=== PATIENT | female | born 1985 | race Caucasian/White ===

== ENCOUNTER 2023-11-14 16:08 | Emergency (ER) | payer MEDICAID, SELFPAY ==
--- NOTE | ~2023-11-14 | XR_ITS ---
EXAMINATION: XR FOOT, RIGHT CLINICAL INFORMATION: Pain to fifth metatarsal COMPARISON: None TECHNIQUE: 3 views of the foot FINDINGS: No fracture or dislocation. Joint spaces are maintained. Small Achilles tendon enthesophyte. No joint effusion. Soft tissues are unremarkable. XR/XR foot RT min 3V IMPRESSION: No acute osseous abnormality.
[2023-11-14 16:14] VITALS: BP 140/89; PULSE 99; RESP 20; TEMP 35.6; O2SAT 99; BMI 41.0
--- NOTE | 2023-11-14 16:16 | ED_ITS ---
HPI - Extremity Injury (Lower) General Chief Complaint: Extremity Problem Stated Complaint: right foot pinky swollen and bruised Time Seen by Provider: 11/14/23 18:20 Source: patient Mode of arrival: ambulatory Limitations: no limitations History of Present Illness HPI Narrative: a 38-year-old female presenting to the ED with complaint of right 5th toe pain. States she was moving her cough and felt a pop sensation, pain since. Also pain to distal 5th metatarsal. Related Data Allergies Allergy/AdvReac Type Severity Reaction Status Date / Time diphenhydramine Allergy Severe DIFF Unverified 05/26/20 18:34 [From BENADRYL] BREATHING erythromycin base Allergy Intermediate RASH Unverified 05/26/20 18:34 [ERYTHROMYCIN BASE] aripiprazole [From Abilify] Allergy Unknown Verified 11/14/23 16:14 lurasidone [From Latuda] Allergy Unknown Verified 11/14/23 16:14 naproxen Allergy Dizziness Verified 11/14/23 16:14 Erythromycin Allergy Unknown rash Uncoded 06/08/13 00:00 around eye Review of Systems Review of Systems: All other systems are reviewed and are negative Constitutional: Reports as per HPI and Reports no additional constitutional complaints Eyes: Reports as per HPI and Reports no additional eye complaints Reports system reviewed and no additional complaints, except as documented Cardiovascular: Reports as per HPI and Reports no additional cardiovascular complaints Respiratory: Reports as per HPI and Reports no additional respiratory complaints Gastrointestinal: Reports as per HPI and Reports no additional gastrointestinal complaints Genitourinary: Reports no additional female genitourinary complaints Musculoskeletal: Reports no additional musculoskeletal complaints Skin/Breast: Reports system reviewed and no additional complaints, except as docu Psychiatric: Reports no additional psychiatric complaints Endocrine: Reports no additional endocrine complaints Hematologic/Lymphatic: Reports no additional hematologic/lymphatic complaints Allergic/Immunologic: Reports no additional allergic/immunologic complaints Reports system reviewed and no additional complaints, except as documented and Reports Abnormal speech present [facility] Social History Social History Advance Directives: No Advance Directives Information Provided: No Physical Exam Vital Signs: Vital Signs: Last Vital Signs Temp 96.1 F L 11/14/23 16:14 Pulse 99 11/14/23 16:14 Resp 20 11/14/23 16:14 BP 140/89 H 11/14/23 16:14 Pulse Ox 99 11/14/23 16:14 O2 Del Method Room Air 11/14/23 16:14 BMI result Body Mass Index 41.0 Vital signs have been reviewed and appear to be correct. Blood pressure elevated. Heart rate normal. Respiratory rate normal. Temperature normal. Oxygen saturation normal. Appearance: Alert. Oriented X3. No acute distress. Head: Normal external exam. Normocephalic. Atraumatic. No Gamez signs noted. No raccoon eyes noted Eyes: PERRLA. EOMI. Conjunctiva and sclera normal. Eyelids normal. ENT: TM's Normal. Pharynx normal. Uvula midline. Moist mucous membranes. No trismus noted. No drooling noted. No muffled voice noted. Neck: Normal inspection. Neck supple. FROM. No adenopathy. Thyroid Normal. No meningeal signs. No neck mass noted. CVS: Normal heart rate and rhythm. Heart sound normal. No murmurs noted. Pulses normal throughout. Respiratory: No respiratory distress. Painless inspiration. Breath sounds normal. No wheezes/rales/rhonchi noted. Chest nontender. No accessory muscle usage noted or decreased air movement noted. Abdomen: Soft and nontender. Bowel sounds normal in all 4 quadrants. No distention noted. No organomegaly noted. No visible injury noted. Back: No CVA tenderness. Full range of motion noted. Skin: Skin warm and dry. Normal skin color. Normal skin turgor. No rashes/lesions/lacerations noted. Extremities: Right foot: Mild swelling at the right 5th metatarsophalangeal joint with small ecchymosis and tenderness but no deformity or step-off, neurovascularly intact. Neuro: Oriented X 3. Cranial nerve exam: II-XII are grossly intact No motor deficit. No sensory deficit. Reflexes normal. Course Course Course Narrative: This is a rapid medical exam: Additional HPI, ROS, PE not included below will be deferred to primary provider. Patient is a 38-year-old female presenting to the ED with complaint of right 5th toe pain. States she was moving her cough and felt a pop sensation, pain since. Also pain to distal 5th metatarsal. Plan: xray Reevaluation(s) Reevaluation #1: Right 5th toe contusion with no fracture, will provide postop shoe, NSAIDs, and ice. Time: 18:57 Medical Decision Making Differential Diagnosis Differential Diagnoses: The differential diagnosis associated with the presentation includes (Right 5th toe fracture, right 5th toe dislocation, right 5th toe contusion.) Admission/Observation Consideration of admission/observation: Escalation of care including admission/observation considered Independent Interpretation I performed an independent interpretation of an: Plain X-Ray (Right foot x-ray: No acute fracture or dislocation.) Radiology Impression Discussion of test interpretation with radiology: I have reviewed the radiologist's reading. Discharge Plan Discharge Clinical Impression: Contusion of fifth toe of right foot Patient Disposition: Home, Self-Care Instructions: Foot Contusion (ED)
== END 2023-11-14 19:22 | disposition home or self-care (01) ==
PROVIDERS: Emergency Provider Emergency Medicine
DX: S90.121A Contusion of right lesser toe(s) without damage to nail, initial encounter (principal); X50.0XXA Overexertion from strenuous movement or load, initial encounter; Y93.9 Activity, unspecified; Y92.009 Unspecified place in unspecified non-institutional (private) residence as the place of occurrence of the external cause; Y99.8 Other external cause status
CPT/HCPCS: 73630; 99282; 99283